=== PATIENT | female | born 1975 | race American Indian/Alaskan Native ===

== ENCOUNTER 2018-02-15 18:34 | Emergency (ER) | payer BC ==
[2018-02-15 18:53] VITALS: RESP 18; TEMP 98.5; O2SAT 98
--- NOTE | 2018-02-15 19:28 | ED PDOC ---
Arrival/HPI - General Chief Complaint: Chest Pain Time Seen by Provider: 02/15/18 18:55 Historian: Patient - History of Present Illness Narrative History of Present Illness (Text): 42 year old F c Past medical history arthritis p/w chest pain x 2 days. Pain is midsternal, like squeezing, worse with exertion, constant, radiating down to L arm. Denies fever, chills, cough, dyspnea, hemoptysis, leg swelling, recent surgery or trauma, OCP use, nausea, vomiting. Went to urgent care today and had normal EKG and then sent to Emergency department. Patient had palpitations in the past and had a negative Holter monitor test during her evaluation. Time/Duration: < week Symptom Course: Unchanged Quality: Tightness Past Medical History - Provider Review Nursing Documentation Reviewed: Yes - Cardiac Hx Cardiac Disorders: No - Pulmonary Hx Respiratory Disorders: No - Neurological Hx Neurological Disorder: No - HEENT Hx HEENT Disorder: No - Renal Hx Renal Disorder: No - Endocrine/Metabolic Hx Endocrine Disorders: No - Hematological/Oncological Hx Blood Disorders: No - Integumentary Hx Dermatological Disorder: No - Musculoskeletal/Rheumatological Hx Arthritis: Yes - Gastrointestinal Hx Gastrointestinal Disorders: No - Genitourinary/Gynecological Hx Genitourinary Disorders: No - Psychiatric Hx Psychophysiologic Disorder: No Hx Substance Use: No - Surgical History Hx Section: Yes Other/Comment: LEEP procedure Family/Social History - Physician Review Nursing Documentation Reviewed: Yes Family/Social History: No Known Family HX Smoking Status: Current Some Days Smoker Hx Alcohol Use: Yes Frequency of alcohol use: Socially Hx Substance Use: No Allergies/Home Meds Allergies/Adverse Reactions: Allergies No Known Allergies Allergy (Verified 02/15/18 18:41) Home Medications: Home Meds Medication Instructions Recorded Confirmed Ibuprofen [Motrin Tab] 600 mg PO BID PRN 02/15/18 02/15/18 Review of Systems - Physician Review All systems were reviewed & negative as marked: Yes - Review of Systems Constitutional: absent: Fevers Respiratory: absent: SOB Physical Exam - Physical Exam Narrative Physical Exam (Text): Constitutional: No acute distress. Head: Normocephalic. Atraumatic. Eyes: PERRL. ENT: Moist mucous membranes. Neck: Supple. Cardiovascular: Regular rate. Chest: No tenderness. Respiratory: Clear to auscultation bilaterally. GI: Soft. Nontender. Nondistended. Back: No CVA tenderness. Musculoskeletal: No tenderness or swelling of extremities. Skin: No rash. Neurologic: Alert, no focal deficit. Vital Signs Reviewed: Yes Vital Signs Temp Pulse Resp BP Pulse Ox 02/15/18 18:34 98.5 F 90 18 121/68 98 Temperature: Afebrile Blood Pressure: Normal Pulse: Regular Respiratory Rate: Normal Appearance: Positive for: Well-Appearing Mental Status: Positive for: Alert and Oriented X 3 Medical Decision Making ED Course and Treatment: Impression: Patient is a 42 year old female who presents to the Emergency department complaining of constant chest pain that started 2 days ago. Differential Diagnosis included but are not limited to: ACS Plan: --Will rule out ACS with 1 troponin in this constant chest pain of 2 days duration. -- Reassess and disposition Progress Notes: EKG shows NSR at [address]/T wave changes. Chest X-ray shows no fracture, PTX, pneumonia. Patient in no distress. Discharged home, f/u PMD, return to Emergency department for worsening pain, fever, dyspnea, vomiting, or any other problem. - Lab Interpretations Lab Results: 02/15/18 19:40 02/15/18 19:40 Lab Results 02/15/18 19:40: Sodium 143, Potassium 4.4, Chloride 104, Carbon Dioxide 28, Anion Gap 16, BUN 15, Creatinine 0.8, Est GFR ( Amer) > 60, Est GFR (Non- Af Amer) > 60, Random Glucose 89, Calcium 9.5, Total Bilirubin 0.6, AST 21, ALT 27, Alkaline Phosphatase 77, Total Creatine Kinase 127, Troponin I < 0.01, Total Protein 7.4, Albumin 4.4, Globulin 3.0, Albumin/Globulin Ratio 1.5 02/15/18 19:40: WBC 7.6, RBC 4.50, Hgb 13.7, Hct 41.0, MCV 91.1, MCH 30.4, MCHC 33.4, RDW 14.3, Plt Count 509 H, MPV 8.1, Gran % 35.9 L, Lymph % (Auto) 51.5 H, Teller % (Auto) 8.1 H, Eos % (Auto) 3.4, Baso % (Auto) 1.1, Gran # 2.71, Lymph # ( Auto) 3.9 H, Teller # (Auto) 0.6, Eos # (Auto) 0.3, Baso # (Auto) 0.08 I have reviewed the lab results: Yes - RAD Interpretation Radiology Orders: 02/15/18 19:23 CHEST PORTABLE [RAD] Stat - EKG Interpretation Interpreted by ED Physician: Yes Type: 12 lead EKG - Scribe Statement The provider has reviewed the documentation as recorded by the Scribe Davon Dudley Provider Scribe Attestation: All medical record entries made by the Scribe were at my direction and personally dictated by me. I have reviewed the chart and agree that the record accurately reflects my personal performance of the history, physical exam, medical decision making, and the department course for this patient. I have also personally directed, reviewed, and agree with the discharge instructions and disposition. Disposition/Present on Arrival - Present on Arrival Any Indicators Present on Arrival: No History of DVT/PE: No History of Uncontrolled Diabetes: No Urinary Catheter: No History of Decub. Ulcer: No History Surgical Site Infection Following: None - Disposition Have Diagnosis and Disposition been Completed?: Yes Diagnosis: Chest pain Disposition: HOME/ ROUTINE Disposition Time: 21:12 Patient Plan: Discharge Condition: STABLE Discharge Instructions (ExitCare): Chest Pain (ED), Chest Pain Referrals: Albino Snow MD [Primary Care Provider] - Follow up with primary Forms: [employer] ([place]ian)
[2018-02-15 20:01] LABS: ALB/GLOB RATIO 1.5 (1.1-1.8); ALBUMIN 4.4 g/dL (3.0-4.8); ALT/SGPT 27 U/L (7-56); AST/SGOT 21 U/L (14-36); BLOOD UREA NITROGEN 15 mg/dL (7-21); CALCIUM 9.5 mg/dL (8.4-10.5); GFR AFRICAN-AMERICAN > 60; GFR NON-AFRICAN AMERICAN > 60
[2018-02-15 20:10] LABS: BASO # 0.08 K/mm3 (0.0-2.0); BASO % 1.1 % (0.0-3.0); EOS # 0.3 (0.0-0.7); EOS % 3.4 % (1.5-5.0); GRAN # 2.71 (1.4-6.5); GRAN % 35.9 % (50.0-68.0); HEMOGLOBIN 13.7 g/dL (12.0-16.0); LYMPH # 3.9 (1.2-3.4); LYMPH % 51.5 % (22.0-35.0); MEAN CELL VOLUME 91.1 fl (80.0-105.0); MEAN CORPUSCULAR HEMOGLOBIN 30.4 pg (25.0-35.0); MEAN CORPUSCULAR HGB CONC 33.4 g/dl (31.0-37.0); MEAN PLATELET VOLUME 8.1 fl (7.0-11.0); MONO # 0.6 (0.1-0.6); MONO % 8.1 % (1.0-6.0); RBC 4.5 10^6/uL (3.5-6.1); RED CELL DISTRIBUTION WIDTH 14.3 % (11.5-14.5); WHITE BLOOD COUNT 7.6 10^3/ul (4.5-11.0)
[2018-02-15 20:12] LABS: TROPONIN I < 0.01 ng/mL
[2018-02-15 21:44] VITALS: BP 124/70; PULSE 70
--- NOTE | 2018-02-16 07:28 | RAD ---
Date of service: 02/15/2018 HISTORY: chest pain COMPARISON: No prior. FINDINGS: LUNGS: No active pulmonary disease. PLEURA: No significant pleural effusion identified, no pneumothorax apparent. CARDIOVASCULAR: Normal. OSSEOUS STRUCTURES: No significant abnormalities. VISUALIZED UPPER ABDOMEN: Normal. OTHER FINDINGS: None. IMPRESSION: No active disease.
--- NOTE | 2018-02-16 09:39 | CARD ---
APPROVED REPORT Date of service: 02/15/2018 EKG Measurement Heart [id number] <Conclusion> Normal sinus rhythm Leftward axis Borderline ECG
== END 2018-02-15 21:45 | disposition home or self-care (01) ==
LOC: ED 18:34
DX: R07.9 Chest pain, unspecified (principal)

== ENCOUNTER 2018-08-26 07:39 | Outpatient (CLI) | payer BC | END 2018-08-26 07:40 | disposition home or self-care (01) | LOC: RAD 07:39 | DX: Z12.31 Encounter for screening mammogram for malignant neoplasm of breast (principal) ==

== ENCOUNTER → 2018-11-21 | Outpatient (CLI) | payer BC | LOC: RAD 10:11 ==